=== PATIENT | male | born 1955 | race Two or more races ===

== ENCOUNTER 2019-02-24 12:35 | Emergency (ER) | payer MEDICAID ==
[~2019-02-24] VITALS: Ht 170.2 cm; Wt 76.8 kg
[2019-02-24 15:15] VITALS: BP 151/88
[2019-02-24 15:43] LABS: CLARITY,URINE CLEAR (Clear); COLOR,URINE YELLOW (Yellow); GLUCOSE, URINE NEGATIVE (Neg); KETONES,URINE NEGATIVE (Neg); LEUKOCYTE ESTERASE ,URINE NEGATIVE (Neg); NITRITES, URINE NEGATIVE (Neg); OCCULT BLOOD,URINE NEGATIVE (Neg); PROTEIN,URINE NEGATIVE (Neg); UROBILINOGEN,URINE 0.2 E.U/dL (0.2-1.0)
[2019-02-24 15:45] LABS: UA COLLECTION TYPE CLN CATCH MIDSTREAM
== END 2019-02-24 16:56 | disposition home or self-care (01) ==
LOC: ER 12:35
DX: N43.3 Hydrocele, unspecified (principal)
CPT/HCPCS: 76870; 81003; 99284